=== PATIENT | female | born 1965 | race Caucasian/White ===

== ENCOUNTER → 2018-10-02 14:31 | Outpatient (CLI) | payer OTHER, SELFPAY ==
--- NOTE | 2018-10-02 | DI.RAD.S_ITS ---
PROCEDURE: XR HIP W PEL IF DONE RT 2V INDICATIONS: PAIN IN RT HIP TECHNIQUE: AP pelvis with lateral view(s) of the right hip(s). COMPARISON: None. FINDINGS: Bones: No fractures or dislocations. Pelvic ring appears intact. No suspicious bony lesions. Mild bilateral hip degeneration. Soft tissues: The visualized bowel gas pattern is normal. No suspicious soft tissue calcifications. IMPRESSION: Mild bilateral hip joint degeneration. Dictated by: Cleveland Calderón M.D. on 10/02/2018 at 16:47 Approved by: Cleveland Calderón M.D. on 10/02/2018 at 16:48
== END ==
PROVIDERS: PCP Student in an Organized Health Care Education/Training Program; Visit Provider Student in an Organized Health Care Education/Training Program
DX: M16.0 Bilateral primary osteoarthritis of hip (principal); M25.551 Pain in right hip
CPT/HCPCS: 73502

== ENCOUNTER → 2019-01-03 14:55 | Outpatient (CLI) | payer OTHER, SELFPAY ==
--- NOTE | 2019-01-03 | DI.US.S_ITS ---
PROCEDURE: US ABDOMEN COMPLETE INDICATIONS: RIGHT UPPER QUADRANT PAIN TECHNIQUE: Real-time scanning was performed of the abdominal and retroperitoneal organs, with image documentation. COMPARISON: [facility], CT, CT ABDOMEN PELVIS WITH CONTRAST, 06/20/2018, 20:46. FINDINGS: Liver: Liver is diffusely increased in echogenicity. Decreased penetration. Normal in size. Gallbladder: No gallstones identified. Normal gallbladder wall. No pericholecystic fluid. Negative sonographic Garza sign. Biliary ducts: Intrahepatic bile ducts are non-dilated. Extrahepatic bile duct not well-seen. Pancreas: Visualized portions of the pancreas are sonographically normal. Spleen: Spleen is normal in size and homogeneous in echotexture. Kidneys: Kidneys are normal in size and echotexture. Right kidney measures 9.9 cm long; left kidney measures 11.6 cm long. No hydronephrosis or nephrolithiasis. No solid masses. Aorta: Visualized aorta is normal in caliber at less than 3 cm. Iliacs: Proximal common iliac arteries are normal in caliber at less than 2.5 cm. IVC: Intrahepatic inferior vena cava is patent. Miscellaneous: No free abdominal fluid. Appendix is not visualized and cannot be evaluated. IMPRESSION: Limited exam due to poor sonographic windows. 1. Increased hepatic echogenicity noted possibly related to hepatic steatosis but other sources of hepatocellular disease cannot be excluded. Recommend clinical correlation. 2. Appendix is not visualized and cannot be evaluated. No free fluid identified. Dictated by: Jacek VIDES Interpreted: Saqib Montana MD on 01/03/2019 at 16:24 Approved by: Saqib Montana M.D. on 01/03/2019 at 17:26
== END ==
PROVIDERS: PCP Student in an Organized Health Care Education/Training Program; Visit Provider Student in an Organized Health Care Education/Training Program
DX: R10.11 Right upper quadrant pain (principal)
CPT/HCPCS: 76700

== ENCOUNTER → 2019-03-13 05:58 | Outpatient (CLI) | payer OTHER, SELFPAY ==
--- NOTE | 2019-03-13 | DI.MRI.S_ITS ---
PROCEDURE: MR HEAD/BRAIN WO/W CON INDICATIONS: Migraine with aura, not intractable, without statu TECHNIQUE: Noncontrast axial T1 spin echo, axial T2 fast spin echo, sagittal and axial FLAIR, coronal T2 fast spin echo, axial gradient echo, axial diffusion and ADC through the brain. After the administration of contrast, axial and coronal 3D VIBE or T1 spin echo with fat saturation through the brain. COMPARISON: [facility], CT, CT BRAIN WO CON, 09/30/2015, 15:15. FINDINGS: Image quality: Excellent. CSF Spaces: Basal cisterns are patent. No extra-axial fluid collections. Ventricles are normal in size and shape. Brain: No midline shift. No intracranial bleeds or masses. No abnormal intracranial enhancement. There are a few foci of nonspecific T2 hyperintensity in the periventricular white matter. The brainstem appears normal. Diffusion-weighted images demonstrate no acute ischemic insults. No chronic ischemic insults. Normal intravascular flow voids are present. Skull and face: Calvarial marrow is normal in signal. Orbits appear normal. Sinuses: Sinuses and mastoids appear clear. IMPRESSION: 1. No acute intracranial abnormalities. 2. A few foci of nonspecific T2 hyperintensity in the periventricular white matter. Dictated by: Timothy Pineda M.D. on 03/13/2019 at 9:25 Approved by: Timothy Pineda M.D. on 03/13/2019 at 9:32
== END ==
PROVIDERS: PCP Student in an Organized Health Care Education/Training Program; Visit Provider Student in an Organized Health Care Education/Training Program
DX: G43.109 Migraine with aura, not intractable, without status migrainosus (principal)
CPT/HCPCS: 70553

== ENCOUNTER 2021-09-10 13:02 | Emergency (ER) | payer OTHER, SELFPAY ==
[2021-09-10 13:12] VITALS: BP 174/106; PULSE 62; RESP 15; TEMP 36; O2SAT 100; BMI 39.1
[2021-09-10 14:22] LABS: Bacteria Urine Moderate (10-30); RBC Urine None Seen (0-5/HPF); Squamous Epithelial Cell Urine 1-5 /HPF (0-5/HPF); WBC Urine 1-5/HPF (0-5/HPF)
--- NOTE | 2021-09-10 16:04 | ED.ABDPAIN ---
HPI - Abdominal Pain General Chief Complaint: Abdominal Pain Stated Complaint: Rt Abd Pain, Vomiting Time Seen by Provider: 09/10/21 15:52 Source: patient Mode of arrival: Ambulatory History of Present Illness HPI narrative: Patient is a 55-year-old female who has history of GERD, syncope, migraines presenting today with ongoing right upper quadrant pain. She says it has been ongoing for 1 month. She was seen evaluated at [facility] ED yesterday where she had blood work and CT done. Workup was negative and patient was discharged home with instructions to continue Protonix. She actually had an EGD and colonoscopy on August 11 which showed a nonobstructive Schatzki's ring illness 3 cm hiatal hernia gout, LA classification grade a distal erosive reflux of otitis, erosive gastritis and duodenitis, severe diverticulosis of left colon and mild of right, 5 mm sigmoid adenomatous appearing polyp status post cold snare polypectomy retrieved. Today she presents with right upper quadrant pain and vomiting. She has been throwing up today. She says that she has some chest pain and shortness of breath. She is tired of feeling this way. Related Data Previous Rx's Medication Instructions Recorded ondansetron 4 mg disintegrating 4 mg PO Q8H PRN nausea and 09/10/21 tablet vomiting #10 tabs oxycodone-acetaminophen 5 mg-325 1 tab PO Q6H PRN pain #10 tabs 09/10/21 mg tablet (Percocet) Allergies Allergy/AdvReac Type Severity Reaction Status Date / Time Penicillins Allergy Verified 09/10/21 13:12 Review of Systems Review of Systems Narrative: GENERAL: Denies chills, fatigue, malaise, fever, sweats, travel HEENT: Denies sinus pain, ear pain, sore throat, difficulty swallowing, neck pain RESPIRATORY: Denies dyspnea, cough, wheezing, hemoptysis, sputum. CARDIOVASCULAR: Denies chest pain, palpitations, orthopnea, edema GASTROINTESTINAL: See HPI : Denies dysuria, frequency, incontinence, hematuria, urinary retention, flank pain. MUSCULOSKELETAL: Denies weakness, joint pain, or bony pain SKIN: No rash, no erythema, no pruritus NEUROLOGIC: Denies weakness, dizziness, headache, numbness, change in speech, confusion PSYCHIATRIC: No concerning psychosocial issues. 12 point review of systems is negative except for those stated above and HPI Patient History Social History Smoking Status: Unknown if ever smoked Smoking Status: Unknown if ever smoked alcohol intake frequency: holidays/special occasions only Substance Use Type: does not use Exam Initial Vital Signs Initial Vital Signs: Vital Signs Temperature 96.8 F L 09/10/21 13:12 Pulse Rate 62 09/10/21 13:12 Respiratory Rate 15 09/10/21 13:12 Blood Pressure 174/106 H 09/10/21 13:12 Pulse Oximetry 100 09/10/21 13:12 Oxygen Delivery Method 09/10/21 13:12 GENERAL: Patient appears uncomfortable actively vomiting HEENT: Head atraumatic,EOMI, pupils reactive, face symmetric, [moist] mucous membranes CARDIOVASCULAR: Regular rate and rhythm without murmurs, rubs or gallops. RESPIRATORY: Breath sounds equal bilaterally, no wheezes rales or rhonchi. ABDOMEN: Soft, tender right upper quadrant no guarding no rebound : No CVA tenderness EXTREMITIES: Normal range of motion, no clubbing or edema. Neurovascularly intact NEUROLOGICAL: Alert and oriented x4.Normal gait and speech. SKIN: Warm, dry, no laceration, no petechiae, no rashes or lesions. Course Orders Ordered: Discontinued Medications Morphine Sulfate (Morphine 2 Mg/Ml Inj) 2 mg IV NOW ONE Stop: 09/10/21 16:16 Last Admin: 09/10/21 16:24 Dose: 2 mg Documented By: NR Ondansetron HCl (Ondansetron 4 Mg/2 Ml Inj) 4 mg IV NOW ONE Stop: 09/10/21 16:12 Last Admin: 09/10/21 16:16 Dose: 4 mg Documented By: NR Pantoprazole Sodium (Pantoprazole 40 Mg Vial) 40 mg IV NOW ONE Stop: 09/10/21 16:12 Last Admin: 09/10/21 16:17 Dose: 40 mg Documented By: NR Vital Signs Vital signs: Vital Signs - 8 hr 09/10/21 13:12 Temperature 96.8 F L Pulse Rate 62 Respiratory Rate 15 Blood Pressure 174/106 H Pulse Oximetry 100 Oxygen Delivery Method Room Air MDM - Abdominal Pain Lab Data Result diagrams: 09/10/21 16:07 09/10/21 16:07 Labs: Lab Results 09/10/21 09/10/2122 Range/Units 13:42 16:07 16:07 WBC 7.9 (4.5-11.0) X10^3/uL RBC 4.70 (4.0-5.2) X10^6/uL Hgb 13.6 (12.0-16.0) g/dL Hct 40.8 (36-46) % MCV 86.7 (80-100) fL MCH 29.0 (26-34) PG MCHC 33.4 (30-36) % RDW 14.4 (11.6-14.8) % Plt Count 267 (150-400) X10^3/uL Neut % (Auto) 76.3 H (50-75) % Lymph % (Auto) 16.2 L (25-40) % Morgan % (Auto) 5.6 (3-14) % Eos % (Auto) 1.2 L (2-4) % Baso % (Auto) 0.7 (0-2) % Neut # (Auto) 6100 (0375-2157) /uL Lymph # (Auto) 1300 (8215-0013) /uL Morgan # (Auto) 400 (0-900) /uL Eos # (Auto) 100 (0-450) /uL Baso # (Auto) 100 (0-100) /uL D-Dimer (<230) ng/mL Sodium 139 (137-145) mmol/L Potassium 3.7 (3.4-5.1) mmol/L Chloride 103 (98-107) mmol/L Carbon Dioxide 30 (22-32) mmol/L BUN 14 (7-17) mg/dL Creatinine 0.72 (0.52-1.04) mg/dL Estimated GFR > 60 (>60) mL/min BUN/Creatinine Ratio 19.4 (6-22) Glucose 112 H (70-100) mg/dL Calcium 9.0 (8.4-10.2) mg/dL Total Bilirubin 0.7 (0.2-1.3) mg/dL AST 27 (14-36) IU/L ALT 22 (<35) IU/L Alkaline Phosphatase 100 (38-126) U/L Total Creatine Kinase (30-135) U/L CK-MB (CK-2) CK-MB (CK-2) Rel Index Troponin I (0.01-0.034) ng/mL Total Protein 7.5 (6.3-8.2) g/dL Albumin 4.3 (3.5-5.0) g/dL Globulin 3.2 (1.7-4.1) g/dL Albumin/Globulin Ratio 1.3 (1.0-2.8) Lipase 69 (23-300) U/L Urine RBC None seen (0-5/HPF) Urine WBC 1-5/hpf (0-5/HPF) Ur Squamous Epith Cells 1-5 /hpf (0-5/HPF) Urine Bacteria Moderate (10-30) H (None) Ur Culture Indicated? Culture not indicate 09/10/21 09/10/21 Range/Units 16:07 16:07 WBC (4.5-11.0) X10^3/uL RBC (4.0-5.2) X10^6/uL Hgb (12.0-16.0) g/dL Hct (36-46) % MCV (80-100) fL MCH (26-34) PG MCHC (30-36) % RDW (11.6-14.8) % Plt Count (150-400) X10^3/uL Neut % (Auto) (50-75) % Lymph % (Auto) (25-40) % Morgan % (Auto) (3-14) % Eos % (Auto) (2-4) % Baso % (Auto) (0-2) % Neut # (Auto) (5270-0730) /uL Lymph # (Auto) (4266-3259) /uL Morgan # (Auto) (0-900) /uL Eos # (Auto) (0-450) /uL Baso # (Auto) (0-100) /uL D-Dimer < 200 (<230) ng/mL Sodium (137-145) mmol/L Potassium (3.4-5.1) mmol/L Chloride (98-107) mmol/L Carbon Dioxide (22-32) mmol/L BUN (7-17) mg/dL Creatinine (0.52-1.04) mg/dL Estimated GFR (>60) mL/min BUN/Creatinine Ratio (6-22) Glucose (70-100) mg/dL Calcium (8.4-10.2) mg/dL Total Bilirubin (0.2-1.3) mg/dL AST (14-36) IU/L ALT (<35) IU/L Alkaline Phosphatase (38-126) U/L Total Creatine Kinase 51 (30-135) U/L CK-MB (CK-2) TNP CK-MB (CK-2) Rel Index TNP Troponin I < 0.012 (0.01-0.034) ng/mL Total Protein (6.3-8.2) g/dL Albumin (3.5-5.0) g/dL Globulin (1.7-4.1) g/dL Albumin/Globulin Ratio (1.0-2.8) Lipase (23-300) U/L Urine RBC (0-5/HPF) Urine WBC (0-5/HPF) Ur Squamous Epith Cells (0-5/HPF) Urine Bacteria (None) Ur Culture Indicated? Point of care testing: Urine Dip Bedside Urine Glucose Negative Bedside Urine Bilirubin - Negative Bedside Urine Ketone - Negative Urine Specific [place] 1.025 Bedside Urine Occult Blood - Negative Bedside Urine pH 6.0 Bedside Urine Protein +/- 15 Bedside Urine Urobilinogen - Negative Bedside Urine Nitrite - Negative Bedside Urine Leukocytes - Negative Esterase ECG Data Interpretation: Normal sinus rhythm rate 61 VA interval 168 QRS [address] changes T-wave inversion noted in lead 3 only MDM Narrative Medical decision making narrative: Patient had complete workup with CT at [facility] yesterday and prior to that 2 weeks ago she had ultrasound and workup. She continues to have right-sided pinpoint pain without explanation. Today she is vomiting. Blood work again is reassuring. Checked troponin and D-dimer today is in case it is they may be abnormal which they are not. no EKG changes. At this time I do not see need for repeat imaging. She is overall feeling better tolerating fluids. At this time there is nothing further to be done in the emergency department. Discharge Plan Departure Patient Disposition: Home Clinical Impression: Abdominal pain, Vomiting Instructions: DI for Abdominal Pain-Adult, DI for Vomiting -- Adult Activity Restrictions/Additional Instructions: *You have been diagnosed with vomiting and abdominal pain *What to do: Today your blood work is overall the same pain. Please talk to your primary care provider about further testing that can be done as an outpatient. *Continue to take medications as directed Zofran 4 mg every 8 hours if needed for nausea vomit Percocet 1 tablet every 6 hours if needed for severe pain *Follow up with your primary care provider in 2-3 days or call [phone] *Return to ER if you should have persistent vomiting, fever, confusion, increased pain despite medication or any new, worsening or concerning symptoms CONTROLLED SUBSTANCE DISCHARGE (Narcotoic/benzodiazepine/Flexeril/Phenergan) 1. You have been prescribed narcotic medications, it does have acetaminophen/Tylenol/paracetamol in it, DO NOT TAKE MORE THAN 4,00mg in 24 hours of Tylenol. TRAMADOL DOES NOT CONTAIN TYLENOL 2. Please understand that we cannot provide further refills of narcotics, benzodiazepines or controlled substances through the ED and her pain management will need to be through your provider. 3. While on these medications you cannot drive or operate heavy machinery. 4. You cannot sign legal documents or perform any duties such as this. 5. As long as you're taking opiate pain medications he should also be taking a stool softener such as Colace, Dulcolax, MiraLAX or prune juice, to help avoid constipation. Prescriptions: New oxycodone-acetaminophen [Percocet] 5-325 mg tablet 1 tab PO Q6H PRN (Reason: pain) Qty: 10 0RF ondansetron 4 mg tablet,disintegrating 4 mg PO Q8H PRN (Reason: nausea and vomiting) Qty: 10 0RF Referrals: Sandrine Mcnamara ND [Primary Care Provider] - Visit Report Forms: Patient Portal/API
[2021-09-10] MEDS: ONDANSETRON 4 MG/2 ML INJ IV (16:16)
[2021-09-10] MEDS: PANTOPRAZOLE 40 MG VIAL IV (16:17)
[2021-09-10 16:21] LABS: Add Manual Diff / Slide Review NO; Basophils Absolute Auto 100 /uL (0-100); Basophils Percent Auto 0.7 % (0-2); Eosinophils Absolute Auto 100 /uL (0-450); Eosinophils Percent Auto 1.2 % (2-4); Hematocrit 40.8 % (36-46); Hemoglobin 13.6 g/dL (12.0-16.0); Lymphocytes Absolute Auto 1300 /uL (1100-4500); Lymphocytes Percent Auto 16.2 % (25-40); Mean Corpuscular HGB Conc 33.4 % (30-36); Mean Corpuscular Volume 86.7 fL (80-100); Monocytes Absolute Auto 400 /uL (0-900); Monocytes Percent Auto 5.6 % (3-14); Neutrophils Absolute Auto 6100 /uL (1500-7000); Neutrophils Percent Auto 76.3 % (50-75); Platelet Count 267 X10^3/uL (150-400); Red Cell Distribution Width 14.4 % (11.6-14.8); White Blood Cell Count 7.9 X10^3/uL (4.5-11.0)
[2021-09-10] MEDS: MORPHINE 2 MG/ML INJ IV (16:24)
[2021-09-10 16:33] LABS: D Dimer < 200 ng/mL (<230)
[2021-09-10 16:34] LABS: Creatine Kinase 51 U/L (30-135)
[2021-09-10 16:36] LABS: Alanine Aminotransferase 22 IU/L (<35); Albumin 4.3 g/dL (3.5-5.0); Albumin Globulin Ratio 1.3 (1.0-2.8); Alkaline Phosphatase 100 U/L (38-126); Aspartate Aminotransferase 27 IU/L (14-36); BUN Creatinine Ratio 19.4 (6-22); Bilirubin Total 0.7 mg/dL (0.2-1.3); Blood Urea Nitrogen 14 mg/dL (7-17); Carbon Dioxide 30 mmol/L (22-32); Chloride 103 mmol/L (98-107); Estimated Glomerular Filt Rate > 60 mL/min (>60); Globulin 3.2 g/dL (1.7-4.1); Glucose 112 mg/dL (70-100); HEMOLYSIS < 15 (0-50); Lipase 69 U/L (23-300); Potassium 3.7 mmol/L (3.4-5.1); Sodium 139 mmol/L (137-145); Total Protein 7.5 g/dL (6.3-8.2)
[2021-09-10 16:46] LABS: Troponin I < 0.012 ng/mL (0.01-0.034)
[2021-09-10 18:22] VITALS: BP 134/68; PULSE 59; O2SAT 95
== END 2021-09-10 18:23 | disposition home or self-care (01) ==
PROVIDERS: Emergency Provider Emergency Medicine; PCP Naturopath
DX: R10.11 Right upper quadrant pain (principal); R11.10 Vomiting, unspecified; R07.9 Chest pain, unspecified; R06.02 Shortness of breath
CPT/HCPCS: 36415; 80053; 81003; 81015; 82550; 83690; 84484; 85025; 85379; 87086; 93005; 93010; 96374; 96375; 99284; C9113; J2270; J2405

== ENCOUNTER → 2022-01-21 12:34 | Outpatient (CLI) | payer OTHER, SELFPAY ==
--- NOTE | 2022-01-21 | DI.CT.S_ITS ---
PROCEDURE: CT ABDOMEN ADRENAL PROTOCOL INDICATIONS: Other specified disorders of adrenal gland TECHNIQUE: Noncontrast 3 mm thick sections acquired from the diaphragms to the iliac crests. After the administration of intravenous contrast, 3 mm thick venous-phase and 15-minute delayed images acquired from the diaphragms to the iliac crests. For radiation dose reduction, the following was used: automated exposure control, adjustment of mA and/or kV according to patient size. COMPARISON: [facility], CT, CT ABDOMEN PELVIS WITH CONTRAST, 06/20/2018, 20:46. [facility], MR, MR ABDOMEN ADRENAL PROTOCOL, 10/16/2021, 7:33. FINDINGS: Image quality: Excellent. Lung bases: Unremarkable small hiatal hernia. Adrenal glands: Cystic lesion of the left adrenal gland again seen, without internal enhancement. This measures about 5.4 x 5.4 centimeters. Normal right adrenal. Solid organs: Unremarkable appearance of the liver, gallbladder, biliary tree, pancreas, spleen, and kidneys. Peritoneum and bowel: No pathologic ascites or bowel obstruction. There are colonic diverticula. Nodes and vessels: No abdominal aortic aneurysm or pathologic adenopathy. Miscellaneous: Anterior abdominal wall postsurgical changes. Bones: No acute or suspicious osseous lesion. IMPRESSION: Fluid attenuation lesion of the left adrenal again seen, most commonly an adrenal pseudocyst. This is enlarged compared to 2019, however there is no internal enhancement. It is unclear why the lesion is increasing in size. If the patient develops new symptoms or has a history of primary malignancy, consider follow-up imaging. Another adrenal protocol CT in 1-2 years is also reasonable. Dictated by: Guzman Urrutia M.D. on 01/21/2022 at 15:15 Approved by: Guzman Urrutia M.D. on 01/21/2022 at 15:26
== END ==
PROVIDERS: PCP Naturopath; Referring Provider Naturopath; Visit Provider Naturopath
DX: E27.8 Other specified disorders of adrenal gland (principal); K44.9 Diaphragmatic hernia without obstruction or gangrene
CPT/HCPCS: 74170; Q9967

== ENCOUNTER → 2023-05-05 07:50 | Outpatient (CLI) | payer OTHER, SELFPAY ==
--- NOTE | 2023-05-05 | DI.US.S_ITS ---
PROCEDURE: US ABDOMEN LIMITED INDICATIONS: Upper abdominal pain, unspecified TECHNIQUE: Real-time scanning was performed of the abdominal and retroperitoneal organs, with image documentation. COMPARISON: [facility], , US ABDOMEN COMPLETE, 01/03/2019, 16:01. FINDINGS: Liver: The liver measures 20.0 cm in length and demonstrates increased echogenicity. Gallbladder: The gallbladder wall measures 1.7 mm in diameter. No stones, sludge, pericholecystic fluid, or sonographic Garza sign. Biliary ducts: Intrahepatic bile ducts are non-dilated. Extrahepatic bile duct is not well visualized. Pancreas: Visualized portions of the pancreas are sonographically normal. The tail is not visualized. IMPRESSION: 1. Markedly increased hepatic echogenicity noted likely related to fatty infiltration of the liver but other sources of hepatocellular disease cannot be excluded. 2. No cholelithiasis or findings to suggest choledocholithiasis or acute cholecystitis. Dictated by: Carito Garcia M.D. on 05/05/2023 at 9:30 Approved by: Carito Garcia M.D. on 05/05/2023 at 9:35
== END ==
PROVIDERS: PCP Naturopath; Referring Provider Naturopath; Visit Provider Naturopath
DX: R10.10 Upper abdominal pain, unspecified (principal)
CPT/HCPCS: 76705

== ENCOUNTER → 2023-08-12 13:44 | Outpatient (CLI) | payer OTHER, SELFPAY ==
--- NOTE | 2023-08-12 13:46 | DI.US.S_ITS ---
PROCEDURE: US RENAL COMPLETE INDICATIONS: FOLLOW UP ADRENAL CYST;ENLARGED THYROID TECHNIQUE: Real-time scanning was performed of the kidneys and bladder, with image documentation. COMPARISON: [facility], CT, CT ABDOMEN ADRENAL PROTOCOL, 01/21/2022, 12:37. [facility], US, US ABDOMEN COMPLETE, 03/02/2022, 10:51. FINDINGS: Kidneys: Kidneys are normal in size. Right kidney measures 12.7 cm long; left kidney measures 11.6 cm long. Right renal cortical thickness is 1 cm; left renal cortical thickness is 1.1 cm. Renal cortical echotexture is normal. No hydronephrosis or nephrolithiasis. No suspicious solid mass lesions. Bladder: Pre-void bladder volume is 304 mL. Post-void residual is 9.5 mL. Pre-void images demonstrate no intraluminal masses or stones. On pre-void images, bilateral ureteral jets are noted with color Doppler interrogation. (Of note, ureteral jets may not be detectable in up to 25% of cases due to insufficient differences in specific gravity between ureteral and bladder urine). Miscellaneous: No free pelvic fluid. Left adrenal cystic lesion measures 7 x 7.5 x 6.2 cm, previously 6.1 x 5.3 x 5[address] dated January 21, 2022 (remeasured, series 3, image 46, series 5, image 80). IMPRESSION: 1. Compared to CT dated January 21, 2022, left adrenal cystic lesion has mildly increased in size measuring 7 x 7.5 x 6.2 cm, previously 6.1 x 5.3 x 5.[address] (adrenal mass protocol) for further evaluation). 2. No hydronephrosis or nephrolithiasis bilaterally. Dictated by: Clara Cooney M.D. on 08/14/2023 at 7:20 Approved by: Clara Cooney M.D. on 08/14/2023 at 7:29
--- NOTE | 2023-08-12 13:47 | DI.US.S_ITS ---
PROCEDURE: US THYROID INDICATIONS: FOLLOW UP ADRENAL CYST;ENLARGED THYROID TECHNIQUE: Real-time scanning was performed of the thyroid gland, with image documentation. COMPARISON: None. FINDINGS: Thyroid: Right lobe measures 4.8 x 2.3 x 2.5 cm. Left lobe measures 7.4 x 4.0 x 3.0 cm. Isthmus is 6 cm thick. Echotexture is heterogeneous. Nodule number: 1 Location: Right mid Size: 1.7 x 1.3 x 1.2 cm. Composition: Solid Echogenicity: Hypoechoic Shape: wider than tall. Margins: Smooth Echogenic foci: None Total points: 4 ACR TI-RADS category: 4 Nodule number: 2 Location: Right inferior Size: 2.3 x 2.1 x 1.3 cm. Composition: Soft Echogenicity: Hypoechoic Shape: wider than tall. Margins: Smooth Echogenic foci: None Total points: 4 ACR TI-RADS category: 4 Nodule number: 3 Location: Left superior Size: 3.1 x 2.0 x 1.9 cm. Composition: Solid Echogenicity: Hypoechoic Shape: wider than tall. Margins: Smooth Echogenic foci: None Total points: 4 ACR TI-RADS category: 4 Nodule number: 4 Location: Left inferior Size: 3.0 x 3.1 x 2.1 cm. Composition: Solid Echogenicity: Hypoechoic Shape: wider than tall. Margins: Smooth Echogenic foci: None Total points: 4 ACR TI-RADS category: 4 IMPRESSION: Lesions 1 through 4 are considered category 4. FNA is recommended for lesions 3 and 4 given no priors are available for comparison. Given size, FNA of lesion 2 is also recommended. Annual follow-up of lesion 1 is recommended. ACR TI-RADS definitions and recommendations: TI-RADS 1 (benign): 0 points. FNA not needed. TI-RADS 2 (not suspicious): 2 points. FNA not needed. TI-RADS 3 (mildly suspicious): 3 points. * FNA if 2.5 cm or larger, follow up if 1.5 cm or larger (at 1, 3, and 5 years). TI-RADS 4 (moderately suspicious): 4-6 points. * FNA if 1.5 cm or larger, follow up if 1 cm or larger (at 1, 2, 3, and 5 years). TI-RADS 5 (highly suspicious): 7 points or more. * FNA if 1 cm or larger, follow up if 0.5 cm or larger (every year for 5 years). Dictated by: Geovanna Archuleta M.D. on 08/12/2023 at 17:20 Approved by: Geovanna Archuleta M.D. on 08/12/2023 at 17:24
== END ==
PROVIDERS: PCP Naturopath; Referring Provider Naturopath; Visit Provider Naturopath
DX: E27.8 Other specified disorders of adrenal gland (principal); E04.2 Nontoxic multinodular goiter
CPT/HCPCS: 76536; 76770

== ENCOUNTER → 2023-10-04 14:02 | Outpatient (CLI) | payer OTHER, SELFPAY ==
--- NOTE | 2023-10-04 14:03 | DI.US.S_ITS ---
PROCEDURE: US FINE NEEDLE ASPIRATION INDICATIONS: Thyroid nodules TECHNIQUE: The indications, alternatives, benefits, risks, and complications of the procedure were explained to the patient. Written informed consent was obtained and placed in the chart. The thyroid region was examined sonographically and a site was chosen for ultrasound guided percutaneous sampling. The skin was prepared and draped in the usual fashion, and anesthetized with 1% lidocaine infiltrated from the skin down to the thyroid gland. Multiple passes were then performed, with contents emptied into an appropriate pathology specimen container. A bandage was applied to the area of access at completion of the study. COMPARISON: [facility], US, US THYROID, 08/12/2023, 14:03. FINDINGS: Location(s) of lesion(s) sampled: #3 Left superior measuring 3.1 cm. #4 Left inferior measuring 3.1 cm. [place]: 25 gauge hypodermic needles x3; 22 gauge hypodermic needles x3 Medications: 1% lidocaine for local anaesthesia. Complications: None. Procedure was well tolerated. IMPRESSION: Successful ultrasound-guided thyroid nodule fine needle aspiration, with cytology results pending. Please see chart below for management recommendations based on cytology results. [facility] ReportingRecommendationsNon-diagnostic* Repeat US-guided FNA, with on-site cytology evaluation if possible. * Repeated non-diagnostic nodules without high suspicion US features: close observation vs surgical consult. * Consider surgery if nodule has high suspicion US features, grows >20% in 2 dimensions on followup, or patient has clinical risk factors for malignancy. Benign* If nodule has high suspicion US features: repeat US and FNA within 12 months. * If nodule has low to intermediate suspicion US features: repeat US at 12-24 months. If nodule grows (20% increase in at least 2 dimensions, with minimal increase of 2 mm or >50% change in volume), or development of new suspicious US features, then repeat FNA or continue followup. * If nodule has very low suspicion US features: followup US at >24 months. Atypia of undetermined significance, follicular lesion of undetermined significanceRepeat FNA, molecular testing, followup US, or surgical consult.Follicular neoplasm, suspicious for follicular neoplasmSurgical consult; also consider molecular testing. Suspicious for malignancySurgical consult.MalignantSurgical consult. Dictated by: Saqib Montana M.D. on 10/04/2023 at 16:46 Approved by: Saqib Montana M.D. on 10/04/2023 at 16:51
== END ==
LOC: US 14:03
PROVIDERS: PCP Naturopath; Referring Provider Naturopath; Visit Provider Naturopath
DX: E05.90 Thyrotoxicosis, unspecified without thyrotoxic crisis or storm (principal); E04.1 Nontoxic single thyroid nodule
CPT/HCPCS: 10005; 10006